=== PATIENT | female | born 1955 | race Caucasian/White ===

== ENCOUNTER 2016-10-05 15:46 | Emergency (ER) | payer MEDICARE, MEDICAID ==
[~2016-10-05] VITALS: Ht 162.6 cm; Wt 63.2 kg
[~2016-10-05 15:46] MED LIST: ATOR20TA65 PO; CITA20TA PO; MELA1TAB21 PO; QUET200T2 PO
[2016-10-05 15:50] VITALS: BP 99/65; PULSE 86; RESP 18; O2SAT 96
--- NOTE | 2016-10-05 16:49 | ED.REPORT ---
HPI-Trauma Minor / Fall Date of Service Oct 05, 2016 ED Provider: Janusz Marquez PA-C Patient is 61-year-old female who presents following a ground-level fall patient reports that she slipped on the ice at [facility] and fell backwards and hit her head. Continued shopping but felt lightheaded dizziness and had increasing neck pain when she reached her car afterwards. Complains of new numbness in her right hand. Denies loss of consciousness, syncope or dizziness prior to the fall. Denies nausea, vomiting, seizures use of blood thinners, other injuries. Nursing Notes Stated Complaint: SICK/GL FALL/HIT HEAD Chief Complaint: Multiple Trauma/Fall Nursing Notes Reviewed: Yes Allergies: Coded Allergies: hydrocodone (Verified Adverse Reaction, Unknown, nausea, 10/05/16) Scheduled Atorvastatin Calcium (Atorvastatin Calcium) 20 Mg Tablet 20 MG PO DAILY Citalopram Hydrobromide (Celexa) 20 Mg Tablet 20 MG PO DAILY Melatonin/Pyridoxine HCl (B6) (Melatonin 10 mg Tablet) 1 Each Tab.mphase 30 MG PO HS Quetiapine Fumarate ER (Seroquel XR) 200 Mg Tab.er.24h 200 MG PO PM General Time Seen by MD: 16:20 Chief Complaint Fall Past Medical History Past Medical History Coronary artery disease, cardiomyopathy with EF of 30-35% according to previous records and echo August, High cholesterol Insomnia Depression Anxiety She is small bowel obstruction Osteoarthritis Reports: GERD, Hyperlipidemia Reports: Urinary tract infection Past Surgical History Surgery for small bowel obstruction Knee surgery Elbow surgery Cervical fusion Rotator cuff repair left patellar fracture Reports: Appendectomy Family History Multiple drug users in the household multiple smokers in household Smoking History Current Every Day Smoker Social History Alcohol Use: Denies alcohol use Drug Use: THC Occupation staying at the [employer] Ambulatory Status Walker Review of Systems General: Denies fever, chills, malaise. HEENT: Admits headache. Denies congestion, sore throat. Respiratory: Denies dyspnea, cough, shortness of breath, wheezing. Cardiovascular: Denies chest pain, palpitations. Gastrointestinal: Denies vomiting, diarrhea, abdominal pain. Otherwise as noted in HPI. Physical Exam General: Well developed, well nourished, no acute distress. Head: Atraumatic, normocephalic. Neck: Midline cervical tenderness approximately C5 Back: Normal to inspection midline spinal tenderness, no paraspinal tenderness Eyes: No scleral icterus or injection. No discharge. Vision grossly intact. ENT: Voice clear, hearing grossly intact. Respiratory: Regular rate and rhythm. Breath sounds present, clear to auscultation and equal bilaterally. Cardiovascular: Regular rate and rhythm, without murmur, gallop or rub. No pedal edema. Gastrointestinal: Abdomen flat and non-tender without guarding or rebound. Bowel sounds normoactive. Skin: Warm and dry. Neurological: Deltoid abduction, wrist flexion and extension, finger flexion and abduction strength 5/5 B/L. Sensation to sharp touch over deltoid and fifth fingers R<L. Equal over first and third digits B/L. Biceps, triceps and brachioradialis reflexes 2+ B/L. Cranial nerves: Vision grossly intact, PERRL, EOMI. Facial motion symmetrical, sensation to light touch over forehead, maxilla and mandible present and equal B /L. Voice clear and fluent, no drooling/pooling of saliva, uvula rises midline. Psychological: alert and oriented. Speech appropriate, linear and logical. Behavior appropriate. Initial Vital Signs Vital Signs (First) Date Time Temp Pulse Resp B/P Pulse Ox O2 Delivery O2 Flow Rate FiO2 10/05/16 15:50 36.5 86 18 99/65 96 Room Air Initial VS: Reviewed Interpretation & Diagnostics CT Head Interpretation PROCEDURE: CT BRAIN WITHOUT CONTRAST ([id number]) INDICATIONS: fall, midline cervical tenderness, neuro changes. IMPRESSION: 1. No acute intracranial findings. 2. Intermediate density air-fluid levels in the maxillary sinuses. Differential considerations include hematoma in the setting of facial injury versus sinusitis. Please correlate clinically. In the setting of trauma, a maxillofacial CT could be considered. Interpretation / Wet Read by: Interpret - Radiologist CT C-Spine Interpretation PROCEDURE: CT CERVICAL SPINE WITHOUT CONTRAST ([id number]) INDICATIONS: fall, midline cervical tenderness, neuro changes. IMPRESSION: 1. No acute cervical spine injury. 2. Degenerative changes and postsurgical changes as above. 2. Findings suspicious for hardware loosening which is a chronic finding. Interpretation / Wet Read by: Interpret - Radiologist Re-Eval/Medical Decision Med Decision/Clinical Course Patient reports midline cervical tenderness and reduced sensation to sharp touch over right deltoid and right small finger that is new since the fall. Ordering a CT scan of the brain and cervical spine. Discussed case with Dr. David Discharge & Departure Departure Notes After removing the c-collar patient is able to range her neck fully without pain. Patient is able to ambulate normally and walk on both her heels and toes. Impression: Primary Impression: Cervical strain, acute Encounter type: initial encounter Qualified Code: S16.1XXA - Strain of muscle, fascia and tendon at neck level, initial encounter Disposition: Home Discharge Condition All VS Reviewed: Yes Condition: Stable Patient Instructions: Cervical Neck Strain Exercises (GEN), Cervical Spine Strain (ED) Additional Instructions: Evaluation for neck pain following a ground-level fall in the ED. History and physical were initially concerning due to midline cervical tenderness and some subtle neurologic changes. Fortunately brain and neck CT revealed no acute injury. Stable and safe for discharge to home. The neck is likely to be more painful tomorrow as the muscles tighten. This is normal and expected. Rest and ice the affected area 4 times a day for 20 minutes for the next 24 hours. After that heat will likely be more beneficial. The pain is best treated with 400 mg of ibuprofen (Advil, Motrin) every 6 hours, or 1000 mg of acetaminophen ( Tylenol) every 6 hours. These drugs can be taken at the same time for more severe pain. Follow up with your primary care physician in a few days to be sure your recovery is progressing as expected and monitor the numbness in your right hand. Return emergency Department for any new or worsening symptoms including increasing neck pain, popping, catching, neurologic changes. Referrals: Argelia Pan DO (PCP) EDSupervising Provider for APC: Eddie David MD, Seth PA-C Oct 05, 2016 16:49
--- NOTE | 2016-10-05 17:17 | DRSVH ---
PROCEDURE: CT BRAIN WITHOUT CONTRAST ([id number]) INDICATIONS: fall, midline cervical tenderness, neuro changes. TECHNIQUE: Noncontrast 4.5 mm thick angled axial sections acquired from the foramen magnum to the vertex, with c oronal reformats. COMPARISON: [facility], CT, CT BRAIN WO CON, 03/17/2016, 10:37. FINDINGS: Image quality: Excellent. CSF spaces: Basal cisterns are patent. No extra-axial fluid collections. Ventricles are normal in size and shape. Brain: No midline shift. No intracranial masses or hemorrhage. Marie-white matter interface is norm al. Skull and face: Calvarium and visualized facial bones are intact, without suspicious lesions. Sinuses: Intermediate density air-fluid levels are partially visualized within the bilateral maxillar y sinuses. The other visualized sinuses and mastoids are clear. IMPRESSION: 1. No acute intracranial findings. 2. Intermediate density air-fluid levels in the maxillary sinuses. Differential considerations includ e hematoma in the setting of facial injury versus sinusitis. Please correlate clinically. In the sett ing of trauma, a maxillofacial CT could be considered. This finding was discussed with ORNNY Escudero at 5:12 PM on 10/05/16. Dictated by: Paige Singh M.D. on 10/05/2016 at 17:13 Approved by: Paige Singh M.D. on 10/05/2016 at 17:13
--- NOTE | 2016-10-05 17:26 | DRSVH ---
PROCEDURE: CT CERVICAL SPINE WITHOUT CONTRAST ([id number]) INDICATIONS: fall, midline cervical tenderness, neuro changes. TECHNIQUE: Noncontrast 3 mm thick sections acquired from the skull base to the T4 level. Sagittal and coronal r eformats were then constructed. For radiation dose reduction, the following was used: automated exp osure control, adjustment of mA and/or kV according to patient size. COMPARISON: [facility], CT, CT BRAIN WO CON, 10/05/2016, 16:54. [facility], CT, CT BRAIN WO CON, 03/17/2016, 10:37. FINDINGS: Image quality: Excellent. Bones: No acute fracture or dislocation. Patient is status post anterior fusion and discectomy from C 3-C7. Lucency around the vertebral body screws is present at C2, C3, and C4 suspicious for hardware l oosening. No hardware fracture. Degenerative changes are present at C2-3 and C7-T1. Soft tissues: Prevertebral soft tissues are normal in thickness. No paravertebral hematomas. No ap ical pneumothoraces. IMPRESSION: 1. No acute cervical spine injury. 2. Degenerative changes and postsurgical changes as above. 2. Findings suspicious for hardware loosening which is a chronic finding. Dictated by: Paige Singh M.D. on 10/05/2016 at 17:21 Approved by: Paige Singh M.D. on 10/05/2016 at 17:21
[2016-10-05 18:13] VITALS: BP 122/73; PULSE 67; O2SAT 96
== END 2016-10-05 18:13 | disposition home or self-care (01) ==
LOC: SED 15:46
DX: S16.1XXA Strain of muscle, fascia and tendon at neck level, initial encounter (principal); W01.198A Fall on same level from slipping, tripping and stumbling with subsequent striking against other object, initial encounter; Y93.89 Activity, other specified; Y92.512 Supermarket, store or market as the place of occurrence of the external cause; Y99.8 Other external cause status; I25.10 Atherosclerotic heart disease of native coronary artery without angina pectoris; I42.9 Cardiomyopathy, unspecified; K21.9 Gastro-esophageal reflux disease without esophagitis; E78.5 Hyperlipidemia, unspecified; F17.200 Nicotine dependence, unspecified, uncomplicated; Z88.5 Allergy status to narcotic agent